=== PATIENT | male | born 1940 | race Caucasian/White ===

== ENCOUNTER 2016-10-03 11:40 | Emergency (ER) | payer OTHER, MEDICARE ==
[2016-10-03 11:43] VITALS: BP 151/80
--- NOTE | 2016-10-03 12:00 | ED SKIN/ALLERGY COMPLAINT ---
History of Present Illness General Chief Complaint: Animal/Insect Bite Stated Complaint: PULLED TICK OFF Source: patient, old records Exam Limitations: no limitations Vital Signs & Intake/Output Vital Signs & Intake/Output Vital Signs Date Time Temp Pulse Resp B/P B/P Pulse O2 O2 Flow FiO2 Mean Ox Delivery Rate 10/03 1143 96.9 65 18 151/80 100 Room Air Allergies Coded Allergies: No Known Allergies (10/03/16) Reconcile Medications Carvedilol 25 MG TABLET 1 TAB PO BID HEART (Reported) Losartan Potassium 100 MG TABLET 1 TAB PO DAILY HEART (Reported) Pravastatin Sodium 40 MG TABLET 1 TAB PO DAILY CHOLESTEROL (Reported) Tamsulosin HCl 0.4 MG CAP.ER.24H 1 CAP PO DAILY PROSTATE (Reported) Warfarin Sodium 5 MG TABLET 1 TAB PO 1700 BLOOD THINNER (Reported) Triage Note: PT TO ED S/P TICK REMOVAL AT HOME. Triage Nurses Notes Reviewed? yes Onset: Abrupt Duration: day(s): (1), constant Timing: recent history Severity: mild Severity Numbers: 3 Location: r axilla No Modifying Factors: none Associated Symptoms: denies HPI: 76-year-old male presents to ER for evaluation after he pulled a tick off of his right axilla Last night. The patient states he was outside gardening yesterday. He states that it could not have been for greater than 12 hours. He denies noting any rashes the skin. He denies fever chills. No joint pain no history of tick borne illnesses no modifying factors or associated symptoms otherwise. (RAO SANZ) Past History Travel History Traveled to [place] past 21 day No Medical History Any Pertinent Medical History? see below for history Neurological: NONE EENT: NONE Cardiovascular: CHF, hypertension, myocardial infarction, HIGH CHOLESTEROL Respiratory: NONE Gastrointestinal: NONE Hepatic: NONE Renal: NONE Musculoskeletal: NONE Surgical History Surgical History: non-contributory Psychosocial History What is your primary language Burmese Tobacco Use: Never used ETOH Use: occasional use Illicit Drug Use: denies illicit drug use Family History Hx Contributory? No (RAO SANZ) Review of Systems Review of Systems Constitutional: Reports: see HPI. All Other Systems: Reviewed and Negative Comments Review of systems: See HPI, All other systems negative. Constitutional, no chills no fever, no malaise HEENT: no sore throat no congestion, no ear pain Cardiovascular: No chest pain Skin: no rashes, no change in skin Respiratory: No dyspnea no cough GI: No nausea no vomiting, no diarrhea, no bloating/constipation : No dysuria Muscle skeletal: No joint pain, no joint swelling, no back pain Neurologic: no headache Psych: No stress Heme/endocrine: No bruising Immunology: No lymphadenopathy (RAO SANZ) Physical Exam Physical Exam General Appearance: well developed/nourished, no apparent distress, alert, awake Comments: Well-developed well-nourished patient in no apparent distress. HEENT: Atraumatic, extraocular motion intact Neck: Supple, FROM Back: FROM Cardiovascular: Regular rate and rhythms no murmurs Respiratory: No respiratory distress. Patient speaking in full complete sentences. Breath sounds clear to auscultation bilaterally: NO W/R/R Extremities: full range of motion Neuro: awake, alert, and oriented to person, place and time. There were no obvious focal neurologic abnormalities. Skin: Warm & dry;No appreciable rash on exposed skin no ecchymosis induration or fluctuance at the site of the previous tick bite Psych: Mood affect normal, normal memory normal judgment. (RAO SANZ) Progress Differential Diagnosis: abscess/cellulitis, anaphylaxis, contact dermatitis, erythema multiforme, lyme disease, shingles Plan of Care: Current Medications Sig/Anne-Marie Start time Last Medication Dose Stop Time Status Admin Doxycycline Hyclate 200 MG ONCE ONE 10/03 1230 UNVr (Vibramycin) 10/03 1231 Discussed with patient plan of care doxycycline 200 mg by mouth ordered discussed with him need to follow-up with his primary care physician return with any concerns. Return precautions were discussed with patient he feels comfortable plan (RAO SANZ) Departure Departure Time of Disposition: 1218 Disposition: HOME OR SELF CARE Condition: Stable Clinical Impression Primary Impression: Tick bite Referrals: CRISTÓBAL STEPHEN,MYL (PCP/Family) Additional Instructions: You have been treated prophylactically with doxycycline for your tick bite. as discussed if you develop fever, chills, body aches, joint pain headaches or any other concerns to return to the er or follow up with your pmd. Departure Forms: Customer Survey General Discharge Information (RAO SANZ) PA/RESIDENTIAL GLAZIER Co-Sign Statement Statement: ED Attending supervision documentation- x I saw and evaluated the patient. I have also reviewed all the pertinent lab results and diagnostic results. I agree with the findings and the plan of care as documented in the PA's/RESIDENTIAL GLAZIER's documentation. [] I have reviewed the ED Record and agree with the PA's/RESIDENTIAL GLAZIER's documentation. [] Additions or exceptions (if any) to the PAs/RESIDENTIAL GLAZIER's note and plan are summarized below: [] (JESSICA STEPHEN,OLAF)
[2016-10-03] MEDS ORDERED: CARVEDILOL25 M1 PO (12:04)
[2016-10-03] MEDS ORDERED: LOSARTAN POTAS100 M1 PO (12:04)
[2016-10-03] MEDS ORDERED: PRAVASTATIN SOD40 M2 PO (12:04)
[2016-10-03] MEDS ORDERED: TAMSULOSIN HCL0.4 M1 PO (12:05)
[2016-10-03] MEDS ORDERED: WARFARIN SODIUM5 M1 PO (12:05)
== END 2016-10-03 12:26 ==
LOC: ERH 11:40
DX: S40.861A Insect bite (nonvenomous) of right upper arm, initial encounter (principal); W57.XXXA Bitten or stung by nonvenomous insect and other nonvenomous arthropods, initial encounter; Y93.9 Activity, unspecified; Y92.9 Unspecified place or not applicable